=== PATIENT | male | born 1975 | race Caucasian/White ===

== ENCOUNTER 2016-04-26 13:53 | Emergency (ER) | payer OTHER ==
--- NOTE | 2016-04-26 14:12 | ED ORDER SUMMARY ---
..... Patient: OMID NORTH OrderSheet [facility] VisitID: [id number] [address] [place] [address] 41y, M Registration Date/Time: 04/26/2016 ORDER SHEET Weight: 83.9 kg (stated) Allergies: NKDA GENERAL ORDERS: MEDICATION ORDERS: Tdap IM 0.5 mL (NOW, per protocol) (14:03 04/26/2016 Jeanie Patterson) (Cancelled: Patient [id number] Tran Grimes) IV FLUIDS: ORDER SHEET NOTES: [Electronically signed by Aye Amaro P.A.-C (14:20 04/26/2016)] [Electronically signed by Chrissie Hernández R.N. (14:39 04/26/2016)] [Electronically locked/signed by Chrissie Hernández R.N. (14:39 04/26/2016)]
--- NOTE | 2016-04-26 14:12 | ED CLINICAL REPORT ---
Clinical Report - Physicians/Mid Levels [facility] [address] [place] [address] 04/26/2016 13:54 Patient: OMID NORTH Time Seen: 14:10 Apr 26 2016. Arrived- Patient did not arrive by private vehicle. Historian- patient. 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 It is described as painful. It has been located on the trunk (Left gluteus). (Pt reports abscess to left gluteus, reports no fevers, no chills. No drainage. H/O multiple of such, upward of 50. Unsure of abscess history.). REVIEW OF SYSTEMS No fever, chills, cough, diarrhea or chest pain. All systems otherwise negative, except as recorded above. PAST HISTORY Tetanus immunization status is unknown. SOCIAL HISTORY History of drug use IM. ADDITIONAL NOTES The nursing notes have been reviewed. PHYSICAL EXAM Vital Signs: 04/26/2016 14:03 BP: 105/52. HR: 89. RR: 16. O2 saturation: 100%. Temp: 98.2 F. Pain level now: 9/10. Neck: Neck not supple. No lymphadenopathy. CVS: Normal heart rate and rhythm. Heart sounds normal. Skin: Skin cool. Erythema. Tender indurated area (left gluteus about 3 by 4 area of erythema, with prior signs of old incisions). Cellulitis. Abscess. Erythematous skin rash present- Left Gluteus with warmth. There is warmth and tenderness. No lymphangitis. Extremities: (full rom of the hip, and good dorsalis pedal pulse.). PROGRESS AND PROCEDURES Incision & Drainage of Abscess: Time: 14:18 Apr 26 2016. Time-out completed immediately before the procedure. The abscess is located (Left Gluteus). The risks of the procedure, benefits and alternatives were explained. Local anesthesia provided using 1% lidocaine with epi. The abscess was incised with a #11 surgical blade. A large amount of pus was drained. Cavity was irrigated with saline. Course of Care: Pt reports im use, and wishes for I/D does not wish for any packing or tetanus. Pt reports he usually opens such him self. Denies fevers/ chills. No systemic sx. Pt stable. To f/u outpatient, I/D in ER. Patient is stable. Symptoms better. Patient/family counseled. Disposition: Discharged. CLINICAL IMPRESSION Single deep abscess with incision and drainage (L Gluteus). INSTRUCTIONS (warm packs at home). Prescription Medications: Bactrim DS 800 mg / 160 mg: take 1 tablet orally every 12 hours for 10 days. No refill. Substitution is permissible. Keflex 500 mg: take 1 capsule orally every 8 hours for 10 days. No refill. Substitution is permissible. (Electronically signed by Aye Amaro P.A.-C 04/26/2016 14:20)
--- NOTE | 2016-04-26 14:12 | ED NURSING NOTES ---
Clinical Report - Nurses [facility] [place] [address] 04/26/2016 13:54 Patient: OMID NORTH TRIAGE Triage time 1403 PM. Acuity: LEVEL 4. Chief Complaint: LEFT LOWER EXTREMITY SWELLING and REDNESS. Location of symptoms- upper back and left thigh. Alert. No acute distress. SEPSIS SCREEN: Sepsis Screen. Negative (no infection suspected/documented). KAE COMA SCORE: [place] Coma Scale: 15- eyes open spontaneously (4); best verbal response- oriented x 4 (5); best motor response- obeys commands (6). --14:13 Chrissie Hernández R.N. 14:03 04/26/16. BP: 105/52 (regular adult cuff) taken on the left arm, via an automated monitor, while lying. HR: 89. RR: 16. O2 saturation: 100% on room air. Temp: 98.2 F (oral). Pain level now: 11/22. --14:13 Chrissie Hernández R.N. Weight: 83.9 kg stated. Height/Length: 65 inches Per Patient. BMI: 30.8. --14:10 Chrissie Hernández R.N. Medications None. --14:07 Chrissie Hernández R.N. Medication/allergy information source: the patient. --14:13 Chrissie Hernández R.N. Allergies NKDA. --14:07 Chrissie Hernández R.N. History Arrived by private vehicle. Historian: patient. Primary physician (none). ( Pt states from shooting dope abscess got infected, on the Left upper thigh (posterior) side, has gotten multiple of these abscess and "has lanced them himself" but feels like he needs help). Location of injuries: left hip. This occurred (1 - 1/2 weeks). Occurred (unknown). He has had swelling, redness and mild trouble walking. The patient has been limping when trying to walk and unable to sit. No fever, difficulty breathing, skin rash or itching. Treatment MEDICAL APPOINTMENT SCHEDULER: None. PAST MEDICAL HX: Infections. Tetanus status: unknown. Immunizations: status is unknown. ( Pt states having frequent abscess infections in the past, which has gotten admitted and detriment on. Unsure of dates). SOCIAL HX: Current every day smoker. Heavy alcohol use; consumes beer weekly and liquor weekly. History of heavy drug use: heroin, methamphetamines. Recently used drugs today. No infectious disease exposure. ABUSE ASSESSMENT: No report of abuse. SELF HARM ASSESSMENT: A self harm assessment was performed. The patient answered "no" to the question "Do you have thoughts of harming or killing yourself?" and "Have you recently had thoughts about harming or killing others?". FALL RISK ASSESSMENT: Fall risk assessment completed. No fall risk identified. NUTRITIONAL RISK ASSESSMENT: The nutritional risk assessment revealed no deficiencies. FUNCTIONAL ASSESSMENT: Functional assessment: no impairments noted. LEARNING NEEDS ASSESSMENT: The learning needs assessment revealed no barriers. SKIN INTEGRITY ASSESSMENT: Skin integrity risk assessment completed. No skin integrity risk identified. --14:13 Chrissie Hernández R.N. PROBLEMS: Abscess. Drug Addiction. Substance Abuse. --14:09 Chrissie Hernández R.N. ADDITIONAL SURGERIES: Debriment of abcess. --14:09 Chrissie Hernández R.N. Interventions ID band on patient. --14:13 Chrissie Hernández R.N. PHYSICAL ASSESSMENT Ambulatory to room. GENERAL / NEURO / PSYCH: Oriented X 4. Alert. Appears in pain. No numbness. EXTREMITIES: Left thigh: tenderness, swelling and erythema (abcess in left posterior upper thigh/below buttocks). No laceration, abrasion, puncture wound, foreign body or deformity. SKIN: Skin intact. Skin is warm and dry. --14:14 Chrissie Hernández R.N. NURSING PROGRESS NOTES The initial plan of care for this patient has been created This plan of care was discussed with the patient. Patient gowned. Reassurance given. Two patient identifiers checked. Call light placed in reach. Side rails up. Bed placed in lowest position. Brakes of bed on. --14:14 Chrissie Hernández R.N. DISPOSITION / DISCHARGE Departure time: 1438 PM. Condition at departure: improved and stable. No learning barriers present. Discharge instructions provided and reviewed with the patient. Reviewed medication(s) side effects, precautions, dosing and course information. Prescription(s) given to the patient. Reviewed wound care instructions. Patient verbalized understanding. Written instructions provided in [place]ian. ( Pt refused tetanus shot and packing of abscess/ s/s of infection reviewed and importance of following up if it get worse or infected). The patient was discharged by the physician hair or beauty salon assistant. He was discharged home and unaccompanied at time of discharge. He left the Emergency Department ambulatory and via private vehicle. Patient driving. FALL RISK ASSESSMENT: Fall risk assessment completed. No fall risk identified. --14:39 Chrissie Hernández R.N. 14:30 04/26/16. BP: 108/58. HR: 87. RR: 16. O2 saturation: 97% on room air. Temp: 98.2 F (oral). Pain level now: 5/10. --14:39 Chrissie Hernández R.N. Locked/Released at 04/26/2016 14:39 by Chrissie Hernández R.N.
--- NOTE | 2016-04-26 14:12 | ED ORDER SUMMARY ---
..... Patient: OMID NORTH OrderSheet [facility] VisitID: [id number] [address] [place] [address] 41y, M Registration Date/Time: 04/26/2016 ORDER SHEET Weight: 83.9 kg (stated) Allergies: NKDA GENERAL ORDERS: MEDICATION ORDERS: Tdap IM 0.5 mL (NOW, per protocol) (14:03 04/26/2016 Jeanie Patterson) (Cancelled: Patient [id number] Tran Grimes) IV FLUIDS: ORDER SHEET NOTES: [Electronically signed by Aye Amaro P.A.-C (14:20 04/26/2016)] [Electronically signed by Chrissie Hernández R.N. (14:39 04/26/2016)] [Electronically locked/signed by Chrissie Hernández R.N. (14:39 04/26/2016)]
--- NOTE | 2016-04-26 14:12 | ED NURSING NOTES ---
Clinical Report - Nurses [facility] [place] [place] [address] 04/26/2016 13:54 Patient: OMID NORTH TRIAGE Triage time 1403 PM. Acuity: LEVEL 4. Chief Complaint: LEFT LOWER EXTREMITY SWELLING and REDNESS. Location of symptoms- upper back and left thigh. Alert. No acute distress. SEPSIS SCREEN: Sepsis Screen. Negative (no infection suspected/documented). KAE COMA SCORE: [place] Coma Scale: 15- eyes open spontaneously (4); best verbal response- oriented x 4 (5); best motor response- obeys commands (6). --14:13 Chrissie Hernández R.N. 14:03 04/26/16. BP: 105/52 (regular adult cuff) taken on the left arm, via an automated monitor, while lying. HR: 89. RR: 16. O2 saturation: 100% on room air. Temp: 98.2 F (oral). Pain level now: 11/22. --14:13 Chrissie Hernández R.N. Weight: 83.9 kg stated. Height/Length: 65 inches Per Patient. BMI: 30.8. --14:10 Chrissie Hernández R.N. Medications None. --14:07 Chrissie Hernández R.N. Medication/allergy information source: the patient. --14:13 Chrissie Hernández R.N. Allergies NKDA. --14:07 Chrissie Hernández R.N. History Arrived by private vehicle. Historian: patient. Primary physician (none). ( Pt states from shooting dope abscess got infected, on the Left upper thigh (posterior) side, has gotten multiple of these abscess and "has lanced them himself" but feels like he needs help). Location of injuries: left hip. This occurred (1 - 1/2 weeks). Occurred (unknown). He has had swelling, redness and mild trouble walking. The patient has been limping when trying to walk and unable to sit. No fever, difficulty breathing, skin rash or itching. Treatment PRODUCT DEVELOPMENT CHEMIST: None. PAST MEDICAL HX: Infections. Tetanus status: unknown. Immunizations: status is unknown. ( Pt states having frequent abscess infections in the past, which has gotten admitted and detriment on. Unsure of dates). SOCIAL HX: Current every day smoker. Heavy alcohol use; consumes beer weekly and liquor weekly. History of heavy drug use: heroin, methamphetamines. Recently used drugs today. No infectious disease exposure. ABUSE ASSESSMENT: No report of abuse. SELF HARM ASSESSMENT: A self harm assessment was performed. The patient answered "no" to the question "Do you have thoughts of harming or killing yourself?" and "Have you recently had thoughts about harming or killing others?". FALL RISK ASSESSMENT: Fall risk assessment completed. No fall risk identified. NUTRITIONAL RISK ASSESSMENT: The nutritional risk assessment revealed no deficiencies. FUNCTIONAL ASSESSMENT: Functional assessment: no impairments noted. LEARNING NEEDS ASSESSMENT: The learning needs assessment revealed no barriers. SKIN INTEGRITY ASSESSMENT: Skin integrity risk assessment completed. No skin integrity risk identified. --14:13 Chrissie Hernández R.N. PROBLEMS: Abscess. Drug Addiction. Substance Abuse. --14:09 Chrissie Hernández R.N. ADDITIONAL SURGERIES: Debriment of abcess. --14:09 Chrissie Hernández R.N. Interventions ID band on patient. --14:13 Chrissie Hernández R.N. PHYSICAL ASSESSMENT Ambulatory to room. GENERAL / NEURO / PSYCH: Oriented X 4. Alert. Appears in pain. No numbness. EXTREMITIES: Left thigh: tenderness, swelling and erythema (abcess in left posterior upper thigh/below buttocks). No laceration, abrasion, puncture wound, foreign body or deformity. SKIN: Skin intact. Skin is warm and dry. --14:14 Chrissie Hernández R.N. NURSING PROGRESS NOTES The initial plan of care for this patient has been created This plan of care was discussed with the patient. Patient gowned. Reassurance given. Two patient identifiers checked. Call light placed in reach. Side rails up. Bed placed in lowest position. Brakes of bed on. --14:14 Chrissie Hernández R.N. DISPOSITION / DISCHARGE Departure time: 1438 PM. Condition at departure: improved and stable. No learning barriers present. Discharge instructions provided and reviewed with the patient. Reviewed medication(s) side effects, precautions, dosing and course information. Prescription(s) given to the patient. Reviewed wound care instructions. Patient verbalized understanding. Written instructions provided in [place]ian. ( Pt refused tetanus shot and packing of abscess/ s/s of infection reviewed and importance of following up if it get worse or infected). The patient was discharged by the physician assistant foreman. He was discharged home and unaccompanied at time of discharge. He left the Emergency Department ambulatory and via private vehicle. Patient driving. FALL RISK ASSESSMENT: Fall risk assessment completed. No fall risk identified. --14:39 Chrissie Hernández R.N. 14:30 04/26/16. BP: 108/58. HR: 87. RR: 16. O2 saturation: 97% on room air. Temp: 98.2 F (oral). Pain level now: 5/10. --14:39 Chrissie Hernández R.N. Locked/Released at 04/26/2016 14:39 by Chrissie Hernández R.N.
--- NOTE | 2016-04-26 14:12 | ED CLINICAL REPORT ---
Clinical Report - Physicians/Mid Levels [facility] [address] [place] [address] 04/26/2016 13:54 Patient: OMID NORTH Time Seen: 14:10 Apr 26 2016. Arrived- Patient did not arrive by private vehicle. Historian- patient. 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 It is described as painful. It has been located on the trunk (Left gluteus). (Pt reports abscess to left gluteus, reports no fevers, no chills. No drainage. H/O multiple of such, upward of 50. Unsure of abscess history.). REVIEW OF SYSTEMS No fever, chills, cough, diarrhea or chest pain. All systems otherwise negative, except as recorded above. PAST HISTORY Tetanus immunization status is unknown. SOCIAL HISTORY History of drug use IM. ADDITIONAL NOTES The nursing notes have been reviewed. PHYSICAL EXAM Vital Signs: 04/26/2016 14:03 BP: 105/52. HR: 89. RR: 16. O2 saturation: 100%. Temp: 98.2 F. Pain level now: 9/10. Neck: Neck not supple. No lymphadenopathy. CVS: Normal heart rate and rhythm. Heart sounds normal. Skin: Skin cool. Erythema. Tender indurated area (left gluteus about 3 by 4 area of erythema, with prior signs of old incisions). Cellulitis. Abscess. Erythematous skin rash present- Left Gluteus with warmth. There is warmth and tenderness. No lymphangitis. Extremities: (full rom of the hip, and good dorsalis pedal pulse.). PROGRESS AND PROCEDURES Incision & Drainage of Abscess: Time: 14:18 Apr 26 2016. Time-out completed immediately before the procedure. The abscess is located (Left Gluteus). The risks of the procedure, benefits and alternatives were explained. Local anesthesia provided using 1% lidocaine with epi. The abscess was incised with a #11 surgical blade. A large amount of pus was drained. Cavity was irrigated with saline. Course of Care: Pt reports im use, and wishes for I/D does not wish for any packing or tetanus. Pt reports he usually opens such him self. Denies fevers/ chills. No systemic sx. Pt stable. To f/u outpatient, I/D in ER. Patient is stable. Symptoms better. Patient/family counseled. Disposition: Discharged. CLINICAL IMPRESSION Single deep abscess with incision and drainage (L Gluteus). INSTRUCTIONS (warm packs at home). Prescription Medications: Bactrim DS 800 mg / 160 mg: take 1 tablet orally every 12 hours for 10 days. No refill. Substitution is permissible. Keflex 500 mg: take 1 capsule orally every 8 hours for 10 days. No refill. Substitution is permissible. (Electronically signed by Aye Amaro P.A.-C 04/26/2016 14:20)
--- NOTE | 2016-04-26 14:40 | ED MAR SUMMARY ---
..... Medication Administration Record [facility] [address] [place], [place] [id number] Patient: OMID NORTH Visit ID: [id number] 41y, M Weight: 83.9 kg Height/Length: 65 in BMI: 30.8 ALLERGIES: NKDA
--- NOTE | 2016-04-26 14:40 | ED DISCHARGE INSTRUCTIONS ---
Patient: OMID NORTH General Instructions [facility] VisitID: [id number] [place] [address] 41y, M Registration Date/Time: 04/26/2016 Single deep abscess with incision and drainage (L Gluteus). INSTRUCTIONS (warm packs at home). Prescription Medications: Bactrim DS 800 mg / 160 mg: take 1 tablet orally every 12 hours for 10 days. No refill. Substitution is permissible. Keflex 500 mg: take 1 capsule orally every 8 hours for 10 days. No refill. Substitution is permissible. ADDITIONAL INFORMATION Abscess [Incision & Drainage] An abscess (sometimes called a boil) occurs when bacteria get trapped under the skin and begin to grow. Pus forms inside the abscess as the body responds to the bacteria. An abscess can occur with an insect bite, ingrown hair, blocked oil gland, pimple, cyst, or puncture wound. Treatment of your abscess has required an incision to drain the pus. If the abscess pocket was large, a gauze packing may have been inserted. This will need to be removed and possibly replaced on your next visit. Antibiotics are not required in the treatment of a simple abscess, unless the infection is spreading into the skin around the wound (known as cellulitis). Healing of the wound will take about one to two weeks depending on the size of the abscess. Healthy tissue will grow from the bottom and sides of the opening until it seals over. Home Care: The wound may drain for the first two days. Cover the wound with a clean dry dressing. If the dressing becomes soaked with blood or pus, change it. If a gauze packing was placed inside the abscess cavity, you may be advised to remove it yourself. You may do this in the shower. Once the packing is removed, you should wash the area in the shower or bath 3 to 4 times a day, until the skin opening has closed. If you were prescribed antibiotics, take them as directed until they are all gone. You may use acetaminophen (Tylenol) or ibuprofen (Motrin, Advil) to control pain, unless another pain medicine was prescribed. [ NOTE: If you have liver disease or ever had a stomach ulcer, talk with your doctor before using these medicines.] Follow Up with your doctor as advised by our staff. If a gauze packing was inserted in your wound, it should be removed in 1-2 days. Check your wound every day for the signs of worsening infection listed below. Get Prompt Medical Attention if any of the following occur: Increasing redness or swelling Red streaks in the skin leading away from the wound Increasing local pain or swelling Continued pus draining from the wound two days after treatment Fever of 100.4F (38C) or higher, or as directed by your healthcare provider Sulfamethoxazole, Trimethoprim Oral tablet What is this medicine? SULFAMETHOXAZOLE; TRIMETHOPRIM or SMX-TMP (suhl fuh meth OK zachariah zohl; trye METH oh prim) is a combination of a sulfonamide antibiotic and a second antibiotic, trimethoprim. It is used to treat or prevent certain kinds of bacterial infections. It will not work for colds, flu, or other viral infections. How should I use this medicine? Take this medicine by mouth with a full glass of water. Follow the directions on the prescription label. Take your medicine at regular intervals. Do not take it more often than directed. Do not skip doses or stop your medicine early. Talk to your laminating machine operator helper regarding the use of this medicine in children. Special care may be needed. This medicine has been used in children as young as 2 months of age. What side effects may I notice from receiving this medicine? Side effects that you should report to your doctor or health nurse wound care as soon as possible: allergic reactions like skin rash or hives, swelling of the face, lips, or tongue breathing problems fever or chills, sore throat irregular heartbeat, chest pain joint or muscle pain pain or difficulty passing urine red pinpoint spots on skin redness, blistering, peeling or loosening of the skin, including inside the mouth unusual bleeding or bruising unusually weak or tired yellowing of the eyes or skin Side effects that usually do not require medical attention (report to your doctor or health nurse wound care if they continue or are bothersome): diarrhea dizziness headache loss of appetite nausea, vomiting nervousness What may interact with this medicine? Do not take this medicine with any of the following medications: aminobenzoate potassium dofetilide metronidazole This medicine may also interact with the following medications: PAPI inhibitors like benazepril, enalapril, lisinopril, and ramipril cyclosporine digoxin diuretics indomethacin medicines for diabetes methenamine methotrexate phenytoin potassium supplements pyrimethamine sulfinpyrazone tricyclic antidepressants warfarin What if I miss a dose? If you miss a dose, take it as soon as you can. If it is almost time for your next dose, take only that dose. Do not take double or extra doses. Where should I keep my medicine? Keep out of the reach of children. Store at room temperature between 20 to 25 degrees C (68 to 77 degrees F). Protect from light. Throw away any unused medicine after the expiration date. What should I tell my health care provider before I take this medicine? They need to know if you have any of these conditions: anemia asthma being treated with anticonvulsants if you frequently drink alcohol containing drinks kidney disease liver disease low level of folic acid or aicqpqm-[id number] dehydrogenase poor nutrition or malabsorption porphyria severe allergies thyroid disorder an unusual or allergic reaction to sulfamethoxazole, trimethoprim, sulfa drugs, other medicines, foods, dyes, or preservatives or trying to get breast-feeding What should I watch for while using this medicine? Tell your doctor or health nurse wound care if your symptoms do not improve. Drink several glasses of water a day to reduce the risk of kidney problems. Do not treat diarrhea with over the counter products. Contact your doctor if you have diarrhea that lasts more than 2 days or if it is severe and watery. This medicine can make you more sensitive to the sun. Keep out of the sun. If you cannot avoid being in the sun, wear protective clothing and use a sunscreen. Do not use sun lamps or tanning beds/booths. Cephalexin Monohydrate Oral tablet What is this medicine? CEPHALEXIN (sef a LORY in) is a cephalosporin antibiotic. It is used to treat certain kinds of bacterial infections It will not work for colds, flu, or other viral infections. How should I use this medicine? Take this medicine by mouth with a full glass of water. Follow the directions on the prescription label. This medicine can be taken with or without food. Take your medicine at regular intervals. Do not take your medicine more often than directed. Take all of your medicine as directed even if you think you are better. Do not skip doses or stop your medicine early. Talk to your laminating machine operator helper regarding the use of this medicine in children. While this drug may be prescribed for selected conditions, precautions do apply. What side effects may I notice from receiving this medicine? Side effects that you should report to your doctor or health nurse wound care as soon as possible: allergic reactions like skin rash, itching or hives, swelling of the face, lips, or tongue breathing problems pain or trouble passing urine redness, blistering, peeling or loosening of the skin, including inside the mouth severe or watery diarrhea unusually weak or tired yellowing of the eyes, skin Side effects that usually do not require medical attention (report to your doctor or health nurse wound care if they continue or are bothersome): gas or heartburn genital or anal irritation headache joint or muscle pain nausea, vomiting What may interact with this medicine? probenecid some other antibiotics What if I miss a dose? If you miss a dose, take it as soon as you can. If it is almost time for your next dose, take only that dose. Do not take double or extra doses. There should be at least 4 to 6 hours between doses. Where should I keep my medicine? Keep out of the reach of children. Store at room temperature between 59 and 86 degrees F (15 and 30 degrees C). Throw away any unused medicine after the expiration date. What should I tell my health care provider before I take this medicine? They need to know if you have any of these conditions: kidney disease stomach or intestine problems, especially colitis an unusual or allergic reaction to cephalexin, other cephalosporins, penicillins, other antibiotics, medicines, foods, dyes or preservatives or trying to get breast-feeding What should I watch for while using this medicine? Tell your doctor or health nurse wound care if your symptoms do not begin to improve in a few days. Do not treat diarrhea with over the counter products. Contact your doctor if you have diarrhea that lasts more than 2 days or if it is severe and watery. If you have diabetes, you may get a false-positive result for sugar in your urine. Check with your doctor or health nurse wound care. You have been given the following additional information: Abscess, Incision And Drainage Sulfamethoxazole, Trimethoprim Oral tablet Cephalexin Monohydrate Oral tablet (Electronically signed by Aye Amaro P.A.-C 04/26/2016 14:20)
--- NOTE | 2016-04-26 14:40 | ED MAR SUMMARY ---
..... Medication Administration Record [facility] [address] [place], [place] [id number] Patient: OMID NORTH Visit ID: [id number] 41y, M Weight: 83.9 kg Height/Length: 65 in BMI: 30.8 ALLERGIES: NKDA
--- NOTE | 2016-04-26 14:40 | ED DISCHARGE INSTRUCTIONS ---
Patient: OMID NORTH General Instructions [facility] VisitID: [id number] [place] [address] 41y, M Registration Date/Time: 04/26/2016 Single deep abscess with incision and drainage (L Gluteus). INSTRUCTIONS (warm packs at home). Prescription Medications: Bactrim DS 800 mg / 160 mg: take 1 tablet orally every 12 hours for 10 days. No refill. Substitution is permissible. Keflex 500 mg: take 1 capsule orally every 8 hours for 10 days. No refill. Substitution is permissible. ADDITIONAL INFORMATION Abscess [Incision & Drainage] An abscess (sometimes called a boil) occurs when bacteria get trapped under the skin and begin to grow. Pus forms inside the abscess as the body responds to the bacteria. An abscess can occur with an insect bite, ingrown hair, blocked oil gland, pimple, cyst, or puncture wound. Treatment of your abscess has required an incision to drain the pus. If the abscess pocket was large, a gauze packing may have been inserted. This will need to be removed and possibly replaced on your next visit. Antibiotics are not required in the treatment of a simple abscess, unless the infection is spreading into the skin around the wound (known as cellulitis). Healing of the wound will take about one to two weeks depending on the size of the abscess. Healthy tissue will grow from the bottom and sides of the opening until it seals over. Home Care: The wound may drain for the first two days. Cover the wound with a clean dry dressing. If the dressing becomes soaked with blood or pus, change it. If a gauze packing was placed inside the abscess cavity, you may be advised to remove it yourself. You may do this in the shower. Once the packing is removed, you should wash the area in the shower or bath 3 to 4 times a day, until the skin opening has closed. If you were prescribed antibiotics, take them as directed until they are all gone. You may use acetaminophen (Tylenol) or ibuprofen (Motrin, Advil) to control pain, unless another pain medicine was prescribed. [ NOTE: If you have liver disease or ever had a stomach ulcer, talk with your doctor before using these medicines.] Follow Up with your doctor as advised by our staff. If a gauze packing was inserted in your wound, it should be removed in 1-2 days. Check your wound every day for the signs of worsening infection listed below. Get Prompt Medical Attention if any of the following occur: Increasing redness or swelling Red streaks in the skin leading away from the wound Increasing local pain or swelling Continued pus draining from the wound two days after treatment Fever of 100.4F (38C) or higher, or as directed by your healthcare provider Sulfamethoxazole, Trimethoprim Oral tablet What is this medicine? SULFAMETHOXAZOLE; TRIMETHOPRIM or SMX-TMP (suhl fuh meth OK zachariah zohl; trye METH oh prim) is a combination of a sulfonamide antibiotic and a second antibiotic, trimethoprim. It is used to treat or prevent certain kinds of bacterial infections. It will not work for colds, flu, or other viral infections. How should I use this medicine? Take this medicine by mouth with a full glass of water. Follow the directions on the prescription label. Take your medicine at regular intervals. Do not take it more often than directed. Do not skip doses or stop your medicine early. Talk to your shark biologist regarding the use of this medicine in children. Special care may be needed. This medicine has been used in children as young as 2 months of age. What side effects may I notice from receiving this medicine? Side effects that you should report to your doctor or health floor care technician as soon as possible: allergic reactions like skin rash or hives, swelling of the face, lips, or tongue breathing problems fever or chills, sore throat irregular heartbeat, chest pain joint or muscle pain pain or difficulty passing urine red pinpoint spots on skin redness, blistering, peeling or loosening of the skin, including inside the mouth unusual bleeding or bruising unusually weak or tired yellowing of the eyes or skin Side effects that usually do not require medical attention (report to your doctor or health floor care technician if they continue or are bothersome): diarrhea dizziness headache loss of appetite nausea, vomiting nervousness What may interact with this medicine? Do not take this medicine with any of the following medications: aminobenzoate potassium dofetilide metronidazole This medicine may also interact with the following medications: PAPI inhibitors like benazepril, enalapril, lisinopril, and ramipril cyclosporine digoxin diuretics indomethacin medicines for diabetes methenamine methotrexate phenytoin potassium supplements pyrimethamine sulfinpyrazone tricyclic antidepressants warfarin What if I miss a dose? If you miss a dose, take it as soon as you can. If it is almost time for your next dose, take only that dose. Do not take double or extra doses. Where should I keep my medicine? Keep out of the reach of children. Store at room temperature between 20 to 25 degrees C (68 to 77 degrees F). Protect from light. Throw away any unused medicine after the expiration date. What should I tell my health care provider before I take this medicine? They need to know if you have any of these conditions: anemia asthma being treated with anticonvulsants if you frequently drink alcohol containing drinks kidney disease liver disease low level of folic acid or [id number] dehydrogenase poor nutrition or malabsorption porphyria severe allergies thyroid disorder an unusual or allergic reaction to sulfamethoxazole, trimethoprim, sulfa drugs, other medicines, foods, dyes, or preservatives or trying to get breast-feeding What should I watch for while using this medicine? Tell your doctor or health floor care technician if your symptoms do not improve. Drink several glasses of water a day to reduce the risk of kidney problems. Do not treat diarrhea with over the counter products. Contact your doctor if you have diarrhea that lasts more than 2 days or if it is severe and watery. This medicine can make you more sensitive to the sun. Keep out of the sun. If you cannot avoid being in the sun, wear protective clothing and use a sunscreen. Do not use sun lamps or tanning beds/booths. Cephalexin Monohydrate Oral tablet What is this medicine? CEPHALEXIN (sef a LORY in) is a cephalosporin antibiotic. It is used to treat certain kinds of bacterial infections It will not work for colds, flu, or other viral infections. How should I use this medicine? Take this medicine by mouth with a full glass of water. Follow the directions on the prescription label. This medicine can be taken with or without food. Take your medicine at regular intervals. Do not take your medicine more often than directed. Take all of your medicine as directed even if you think you are better. Do not skip doses or stop your medicine early. Talk to your shark biologist regarding the use of this medicine in children. While this drug may be prescribed for selected conditions, precautions do apply. What side effects may I notice from receiving this medicine? Side effects that you should report to your doctor or health floor care technician as soon as possible: allergic reactions like skin rash, itching or hives, swelling of the face, lips, or tongue breathing problems pain or trouble passing urine redness, blistering, peeling or loosening of the skin, including inside the mouth severe or watery diarrhea unusually weak or tired yellowing of the eyes, skin Side effects that usually do not require medical attention (report to your doctor or health floor care technician if they continue or are bothersome): gas or heartburn genital or anal irritation headache joint or muscle pain nausea, vomiting What may interact with this medicine? probenecid some other antibiotics What if I miss a dose? If you miss a dose, take it as soon as you can. If it is almost time for your next dose, take only that dose. Do not take double or extra doses. There should be at least 4 to 6 hours between doses. Where should I keep my medicine? Keep out of the reach of children. Store at room temperature between 59 and 86 degrees F (15 and 30 degrees C). Throw away any unused medicine after the expiration date. What should I tell my health care provider before I take this medicine? They need to know if you have any of these conditions: kidney disease stomach or intestine problems, especially colitis an unusual or allergic reaction to cephalexin, other cephalosporins, penicillins, other antibiotics, medicines, foods, dyes or preservatives or trying to get breast-feeding What should I watch for while using this medicine? Tell your doctor or health floor care technician if your symptoms do not begin to improve in a few days. Do not treat diarrhea with over the counter products. Contact your doctor if you have diarrhea that lasts more than 2 days or if it is severe and watery. If you have diabetes, you may get a false-positive result for sugar in your urine. Check with your doctor or health floor care technician. You have been given the following additional information: Abscess, Incision And Drainage Sulfamethoxazole, Trimethoprim Oral tablet Cephalexin Monohydrate Oral tablet (Electronically signed by Aye Amaro P.A.-C 04/26/2016 14:20)
--- NOTE | 2016-04-26 14:40 | ED MED RECONCILIATION SUMMARY ---
Patient: OMID NORTH Medication Reconciliation Report [facility] VisitID: [id number] [address] [place] [address] 41y, M Registration Date/Time: 04/26/2016 Weight: 83.9 kg Height/Length: 65 in. BMI: 30.8 ALLERGIES: NKDA The patient's Home Medications are listed below: NONE. The source(s) of the original Home Medication information: patient The following Medications were given to the patient in the Emergency Department: None. The following Medications were prescribed to the patient: Bactrim DS 800 mg / 160 mg: take 1 tablet orally every 12 hours for 10 days. No refill. Substitution is permissible. -- Aye Amaro, P.A.-Abhinav Keflex 500 mg: take 1 capsule orally every 8 hours for 10 days. No refill. Substitution is permissible. -- Aye Amaro P.A.-C
--- NOTE | 2016-04-26 14:40 | ED MED RECONCILIATION SUMMARY ---
Patient: OMID NORTH Medication Reconciliation Report [facility] VisitID: [id number] [address] [place] [address] 41y, M Registration Date/Time: 04/26/2016 Weight: 83.9 kg Height/Length: 65 in. BMI: 30.8 ALLERGIES: NKDA The patient's Home Medications are listed below: NONE. The source(s) of the original Home Medication information: patient The following Medications were given to the patient in the Emergency Department: None. The following Medications were prescribed to the patient: Bactrim DS 800 mg / 160 mg: take 1 tablet orally every 12 hours for 10 days. No refill. Substitution is permissible. -- Aye Amaro, P.A.-Abhinav Keflex 500 mg: take 1 capsule orally every 8 hours for 10 days. No refill. Substitution is permissible. -- Aye Amaro P.A.-C
== END 2016-04-26 14:30 | disposition home or self-care (01) ==
LOC: ED SRH 13:53
DX: L02.31 Cutaneous abscess of buttock (principal)